=== PATIENT | male | born 1960 | race Caucasian/White ===

== ENCOUNTER 2020-10-28 23:08 | Emergency (ER) | payer BC, SELFPAY | END 2020-10-29 00:28 | disposition home or self-care (01) | LOC: ERS 23:08 | DX: S01.01XA Laceration without foreign body of scalp, initial encounter (principal); I10 Essential (primary) hypertension; Z79.899 Other long term (current) drug therapy; W19.XXXA Unspecified fall, initial encounter | CPT/HCPCS: 12001; 70450; 72125 ==